=== PATIENT | female | born 1945 | race Caucasian/White ===

== ENCOUNTER → 2018-06-26 | Outpatient (CLI) | payer OTHER ==
[~2018-06-26] MED LIST: CO Q-10100 MG PO; HYDROCHLOROTH12.5 MG PO; LEVOTHYROXIN0.075 MG PO; LIPITOR 20 MG T20 M1 PO; LISINOPRIL2.5 MG PO; VITAMIN D3400 UNI2 PO
== END ==
LOC: HYPER 06-05 11:46
DX: R21 Rash and other nonspecific skin eruption (principal); I10 Essential (primary) hypertension; E03.9 Hypothyroidism, unspecified; E78.00 Pure hypercholesterolemia, unspecified; C06.9 Malignant neoplasm of mouth, unspecified; R47.1 Dysarthria and anarthria; K94.29 Other complications of gastrostomy; N18.3 Chronic kidney disease, stage 3 (moderate); L93.0 Discoid lupus erythematosus; E78.5 Hyperlipidemia, unspecified; M19.90 Unspecified osteoarthritis, unspecified site; J44.9 Chronic obstructive pulmonary disease, unspecified; F19.10 Other psychoactive substance abuse, uncomplicated; Z87.891 Personal history of nicotine dependence; Z85.828 Personal history of other malignant neoplasm of skin; Z65.8 Other specified problems related to psychosocial circumstances

== ENCOUNTER → 2018-08-05 | Outpatient (CLI) | payer OTHER | LOC: HYPER 07-24 15:57 | DX: K94.29 Other complications of gastrostomy (principal); R21 Rash and other nonspecific skin eruption; E03.9 Hypothyroidism, unspecified; E78.00 Pure hypercholesterolemia, unspecified; E78.5 Hyperlipidemia, unspecified; C06.9 Malignant neoplasm of mouth, unspecified; L93.0 Discoid lupus erythematosus; I12.9 Hypertensive chronic kidney disease with stage 1 through stage 4 chronic kidney disease, or unspecified chronic kidney disease; N18.3 Chronic kidney disease, stage 3 (moderate); J44.9 Chronic obstructive pulmonary disease, unspecified; M19.90 Unspecified osteoarthritis, unspecified site; R73.01 Impaired fasting glucose; F10.10 Alcohol abuse, uncomplicated; Z65.8 Other specified problems related to psychosocial circumstances; Z87.891 Personal history of nicotine dependence; Z98.49 Cataract extraction status, unspecified eye; Z85.828 Personal history of other malignant neoplasm of skin; Z85.00 Personal history of malignant neoplasm of unspecified digestive organ; Y83.8 Other surgical procedures as the cause of abnormal reaction of the patient, or of later complication, without mention of misadventure at the time of the procedure; Y82.8 Other medical devices associated with adverse incidents ==